=== PATIENT | male | born 1975 | race Hispanic/Latino ===

== ENCOUNTER 2021-10-09 10:15 | Inpatient (IN) | payer OTHER ==
[~2021-10-09] VITALS: Ht 167.6 cm; Wt 102.5 kg
[2021-10-09 12:22] VITALS: BP 128/90
[2021-10-09 16:00] VITALS: BP 108/76
[2021-10-09] MEDS: ASPIRIN 81 MG EC TAB PO SCH (16:07)
[2021-10-09 16:16] LABS: HEMATOCRIT 43.4 % (42-54); MEAN CORPUSCULAR HEMOGLOBIN 31.3 pg (27.0-33.0); MEAN CORPUSCULAR VOLUME 89.3 fL (79-99); RED BLOOD CELL COUNT(AUTO) 4.86 MIL/uL (4.50-6.20); RED CELL DISTRIBUTION WIDTH 12.6 % (11.0-15.5); WHITE BLOOD COUNT (AUTO) 10.2 K/uL (4.8-10.8)
[2021-10-09 16:28] LABS: POTASSIUM 3.9 mmol/L (3.5-5.1)
[2021-10-09 19:37] VITALS: BP 147/90
[2021-10-09] MEDS ORDERED: ATORVASTATIN 20 MG TABLET PO SCH (21:00)
[2021-10-09 23:05] VITALS: BP 138/85
[2021-10-10] MEDS ORDERED: ONDANSETRON 4MG INJ IV PRN (01:00)
[2021-10-10] MEDS ORDERED: ACETAMINOPHEN 325 MG TAB PO PRN ×2 (01:00)
[2021-10-10 03:10] VITALS: BP 132/88
[2021-10-10 03:26] LABS: HEMOGLOBIN A1C 6.1 % (4.0-6.0)
[2021-10-10 04:08] LABS: THYROID STIMULATING HORMONE 1.93 uIU/mL (0.36-3.74)
[2021-10-10 08:01] VITALS: BP 145/93
[2021-10-10] MEDS: ASPIRIN 81 MG EC TAB PO SCH (08:14)
[2021-10-10] MEDS ORDERED: FAMOTIDINE 20MG VIAL IV SCH (09:00)
[2021-10-10] MEDS ORDERED: HYDROCHLOROTHIAZIDE 25 MG TABLET PO SCH (09:00)
[2021-10-10] MEDS ORDERED: LISINOPRIL 10 MG TABLET PO SCH (09:00)
[2021-10-10] MEDS ORDERED: REGADENOSON 0.4 MG/5 ML PF SYG IVP SCH (10:30)
[2021-10-10] MEDS ORDERED: LISI1TAB49 PO (11:37)
[2021-10-10] MEDS ORDERED: FENO145T PO (11:37)
[2021-10-10] MEDS ORDERED: AEC81 PO (11:37)
[2021-10-10] MEDS ORDERED: ATOR40TA69 PO (11:37)
[2021-10-10 11:45] VITALS: BP 128/85
[2021-10-10 16:01] VITALS: BP 150/90
[2021-10-10] MEDS ORDERED: ATORVASTATIN 40 MG TABLET PO SCH (21:00)
[2021-10-10] MEDS ORDERED: FENOFIBRATE NANOCRYSTALLIZED 145 MG TAB PO SCH (21:00)
== END 2021-10-10 17:58 | disposition home or self-care (01) | DRG 282 ==
LOC: EDBD → 2DH 11:46 → OBSVTOIN 11:46
PROVIDERS: ADMIT Internal Medicine; ATTEND Internal Medicine
DX: I21.4 Non-ST elevation (NSTEMI) myocardial infarction (principal); E66.9 Obesity, unspecified; E78.1 Pure hyperglyceridemia; F12.90 Cannabis use, unspecified, uncomplicated; I10 Essential (primary) hypertension; I25.10 Atherosclerotic heart disease of native coronary artery without angina pectoris; Z68.36 Body mass index [BMI] 36.0-36.9, adult; Z83.3 Family history of diabetes mellitus; Z82.5 Family history of asthma and other chronic lower respiratory diseases
CPT/HCPCS: 36415; 78452; 80048; 80061; 82550; 83036; 83874; 84443; 84484; 85027; 93005; 93017; 96374; A9500; G0378; J2785; J3490